=== PATIENT | female | born 1960 | race Caucasian/White ===

== ENCOUNTER → 2018-07-22 | Outpatient (CLI) | payer OTHER, BC | END | disposition home or self-care (01) | LOC: SPEC 15:21 | PROVIDERS: ATTEND Obstetrics & Gynecology | DX: Z01.419 Encounter for gynecological examination (general) (routine) without abnormal findings (principal) | CPT/HCPCS: 88175 ==

== ENCOUNTER → 2018-08-31 | Day surgery (SDC) | payer BC, OTHER ==
[~2018-08-31] MED LIST: ATROPINE 0.5 MG/5 ML DISP.SYRINGE. ONE; HYDROmorphone 2 MG/ML VIAL IV PRN; IV RINGERS,LACTATED 1000ML 1,000 ML IV SCH; LIDOCAINE 1% PF 2 ML VIAL. ID PRN; MORPHINE SULFATE 2 MG/ML VIAL. IV PRN; ONDANSETRON PF 4 MG/2 ML VIAL. IV PRN; PROCHLORPERAZINE 10 MG/2 ML VIAL. IV PRN; PROPOFOL 40 ML IV ONE; ePHEDrine PF IN SALINE 50 MG/10 ML SYRINGE. IV ONE; fentaNYL PF VIAL 100 MCG/2 ML VIAL IV PRN
[2018-08-31 09:30] VITALS: BP 137/68
--- NOTE | 2018-09-01 02:52 | CONS ---
DATE OF CONSULTATION: 08/31/2018 REASON FOR CONSULTATION: History of colonic polyps and epigastric abdominal pain. HISTORY OF PRESENT ILLNESS: A 57-year-old female whose past medical history is significant for appendectomy, colon resection, hysterectomy and tonsillectomy, seen for interval colonoscopy. Prior colonoscopy revealed cecal mass. Biopsies fortunately and surgical pathology were unrevealing. She is here today for interval exam. No diarrhea or constipation is noted. No melena or hematochezia is noted. She does have intermittent epigastric abdominal pain with dyspepsia. There has been no NSAID use. No dysphagia or odynophagia. With the continued symptoms and family history of gastric cancer, she requests additional evaluation. PAST MEDICAL HISTORY: Status post appendectomy, colon resection, hysterectomy, tonsillectomy. ALLERGIES: None. MEDICATIONS: None. FAMILY HISTORY: Significant for colon cancer in multiple uncles, colon polyps with her father, hypertension with her mother, stomach cancer in her brother, sister and grandmother. REVIEW OF SYSTEMS: As per records. PHYSICAL EXAMINATION: GENERAL: Reveals a well-nourished, well-developed female. VITAL SIGNS: Temperature is 97.7, pulse 80, respiratory rate 20. HEENT: Normocephalic and atraumatic head. Pupils and extraocular muscles are not tested. Sclerae anicteric. NECK: Supple. LUNGS: Clear. CARDIOVASCULAR: Reveals S1, S2 without S3, S4 or appreciable murmur. ABDOMEN: Reveals soft abdomen, normal bowel sounds without appreciable hepatosplenomegaly. EXTREMITIES: Reveals no cyanosis, clubbing or edema. Multiple surgical incisions are noted. IMPRESSION: 1. Epigastric abdominal pain, etiology is to be determined. Differential includes peptic ulcer disease, gastroesophageal reflux disease, Melgar's, gastroparesis, gallbladder disease and gastric cancer. Upper endoscopy is recommended to further assess. 2. History of colonic polyps. Surveillance colonoscopy is recommended. Risks and benefits of procedure have been discussed with the patient including risk of hemorrhage and perforation and she is willing to proceed. I would like to thank Dr. Andi Lau for allowing us to consult and participate in the patient's care. JOHN GREEN MD DR: FEDERICO/nick JOB#: [id number] / [id number] ANDI Wen MD
== END | disposition home or self-care (01) ==
LOC: SURG 07:09
PROVIDERS: ATTEND Internal Medicine Gastroenterology
DX: Z12.11 Encounter for screening for malignant neoplasm of colon (principal); K29.50 Unspecified chronic gastritis without bleeding; K64.0 First degree hemorrhoids; Z86.010 Personal history of colon polyps; Z90.49 Acquired absence of other specified parts of digestive tract; Z90.710 Acquired absence of both cervix and uterus; Z98.890 Other specified postprocedural states; Z83.71 Family history of colonic polyps; Z82.49 Family history of ischemic heart disease and other diseases of the circulatory system
CPT/HCPCS: 43235; 45378; J0171; J0461; J2704